=== PATIENT | female | born 1950 | race Caucasian/White ===

== ENCOUNTER 2017-06-26 01:34 | Inpatient (IN) | payer OTHER ==
[~2017-06-26] VITALS: Ht 154.9 cm; Wt 71.8 kg
[2017-06-26] VITALS (16 sets, daily range): BP systolic 122–167; BP diastolic 61–84
[~2017-06-26 01:34] MED LIST: CLINDAMYCIN HC300 MG PO; NOHOMEMEDS
[2017-06-26 02:24] LABS: HEMATOCRIT 21.4 % (36.0-46.0); MCH 19.9 PG (29.0-34.0); MCHC 25.2 G/DL (30.0-36.0); MCV 78.7 FL (83-99); MEAN PLAT.VOLUME 10.2 uM^3 (9.5-12.4); PLATELET COUNT 267 K/uL (156-360); RBC DIS.WIDTH-SD 56.8 % (39-53); RED BLOOD COUNT 2.72 M/uL (3.80-5.20); WHITE BLOOD COUNT 2.6 K/uL (4.1-10.2)
[2017-06-26 02:25] LABS: CHLORIDE 103 mEq/L (99-109); POTASSIUM 3.4 mEq/L (3.7-5.4); SODIUM 139 mEq/L (136-147)
[2017-06-26 02:27] LABS: GLUCOSE 109 mg/dL (70-99)
[2017-06-26 02:29] LABS: ANION GAP 11 MEQ/L (2-14)
[2017-06-26 02:31] LABS: GFR ESTIMATE (CALCULATED) > 59 mL/min/
[2017-06-26 02:32] LABS: UREA NITROGEN (BUN) 16 mg/dL (9-23)
[2017-06-26 02:33] LABS: INTER. NORMALIZED RATIO 1.1; PROTHROMBIN TIME 12.1 SEC (10.2-12.9)
[2017-06-26 02:36] LABS: PTT 34.1 SEC (25-37)
[2017-06-26 02:40] LABS: TROP-I INTERPRETATION NEGATIVE; TROPONIN-I < 0.01 ng/mL (0.0-0.30)
[2017-06-26] MEDS ORDERED: CHERATUSSIN AC473 ML PO (13:11)
[2017-06-26] MEDS ORDERED: ANORO ELLIPTA1 EACH IH (13:11)
[2017-06-26] MEDS ORDERED: FIORICET 50-301 EAC1 PO (13:12)
[2017-06-26] MEDS ORDERED: NABUMETONE750 MG PO (13:12)
[2017-06-26] MEDS ORDERED: LASIX20 MG PO (13:13)
[2017-06-26] MEDS ORDERED: SYMBICORT60 INHALAT IH (13:13)
[2017-06-26] MEDS ORDERED: LOSARTAN POTAS100 MG PO (13:14)
[2017-06-26] MEDS ORDERED: TYLENOL EXTRA500 MG PO (13:14)
[2017-06-26] MEDS ORDERED: BUSPAR15 MG PO (13:14)
[2017-06-26] MEDS ORDERED: CYCLOBENZAPRINE10 MG PO (13:16)
[2017-06-26] MEDS ORDERED: ATARAX,VISTARIL25 MG PO (13:17)
[2017-06-26] MEDS ORDERED: CELEXA40 MG PO (13:17)
[2017-06-26] MEDS ORDERED: HYDROCHLOROTH12.5 M3 PO (13:18)
[2017-06-26] MEDS ORDERED: TOPIRAMATE ER25 MG PO (13:18)
[2017-06-26] MEDS ORDERED: ADVIL,NUPRIN,M200 MG PO (13:18)
[2017-06-26] MEDS ORDERED: BENADRYL25 MG PO (13:19)
[2017-06-26 16:31] LABS: ALKALINE PHOSPHATASE 93 IU/L (3-129); DIRECT BILIRUBIN 0.3 mg/dL (0.0-0.3); TOTAL BILIRUBIN 1.3 MG/DL (0.0-1.0)
[2017-06-26 16:32] LABS: TROP-I INTERPRETATION NEGATIVE; TROPONIN-I 0.01 ng/mL (0.0-0.30)
[2017-06-26 17:57] LABS: HEMATOCRIT 27.3 % (36.0-46.0); MCV 80.8 FL (83-99)
[2017-06-26 18:31] LABS: EOSINOPHIL (%) 2.1 % (0-5); EOSINOPHIL COUNT 0.1 K/uL (0-0.3); HEMATOCRIT 26.7 % (36.0-46.0); IMMATURE GRANULOCYTE (%) 0.4 % (0.0-0.7); INSTRUMENT ABS NEUTROPHIL CT 1.3 K/uL; LYMPHOCYTE COUNT 0.6 K/uL (1.0-2.8); MCH 22.8 PG (29.0-34.0); MCHC 28.1 G/DL (30.0-36.0); MCV 81.2 FL (83-99); MEAN PLAT.VOLUME 9.4 uM^3 (9.5-12.4); MONOCYTE (%) 20.2 % (3-12); MONOCYTE COUNT 0.5 K/uL (0-0.8); NEUTROPHIL (%) 52.9 % (45-76); NEUTROPHIL COUNT 1.3 K/uL (1.8-6.4); NRBC (%) 0.8 /100 WBC (0-0); PLATELET COUNT 220 K/uL (156-360); RBC DIS.WIDTH-CV 18.4 % (11.8-14.6); RBC DIS.WIDTH-SD 54.4 % (39-53); WHITE BLOOD COUNT 2.4 K/uL (4.1-10.2)
[2017-06-26 18:42] LABS: RED BLOOD COUNT 3.29 M/uL (3.80-5.20)
[2017-06-26 18:53] LABS: TROP-I INTERPRETATION NEGATIVE; TROPONIN-I 0.01 ng/mL (0.0-0.30)
[2017-06-27] VITALS (10 sets, daily range): BP systolic 125–180; BP diastolic 59–81
[2017-06-27 06:54] LABS: EOSINOPHIL (%) 2.7 % (0-5); EOSINOPHIL COUNT 0.1 K/uL (0-0.3); HEMATOCRIT 27.2 % (36.0-46.0); IMMATURE GRANULOCYTE (%) 0.8 % (0.0-0.7); INSTRUMENT ABS NEUTROPHIL CT 1.4 K/uL; LYMPHOCYTE COUNT 0.5 K/uL (1.0-2.8); MCH 23.7 PG (29.0-34.0); MCV 81.7 FL (83-99); MEAN PLAT.VOLUME 10.2 uM^3 (9.5-12.4); MONOCYTE (%) 19.5 % (3-12); MONOCYTE COUNT 0.5 K/uL (0-0.8); NEUTROPHIL (%) 55.6 % (45-76); NEUTROPHIL COUNT 1.4 K/uL (1.8-6.4); NRBC (%) 0.8 /100 WBC (0-0); PLATELET COUNT 224 K/uL (156-360); RBC DIS.WIDTH-CV 18.6 % (11.8-14.6); RBC DIS.WIDTH-SD 55.2 % (39-53); RED BLOOD COUNT 3.33 M/uL (3.80-5.20); WHITE BLOOD COUNT 2.6 K/uL (4.1-10.2)
[2017-06-27 08:46] LABS: ANION GAP 5 MEQ/L (2-14); CHLORIDE 103 MEQ/L (99-109); SAMPLE HEMOLYSIS CHECK 0; SAMPLE ICTERIC CHECK 0; SAMPLE LIPEMIA CHECK 0; SODIUM 138 MEQ/L (136-147)
[2017-06-27 08:51] LABS: GFR ESTIMATE (CALCULATED) > 59 mL/min/; GLUCOSE 131 mg/dL (70-99); UREA NITROGEN (BUN) 6 mg/dL (9-23)
[2017-06-27 11:30] LABS: ADD MIUA? YES; BILIRUBIN NEGATIVE; BLOOD NEGATIVE; COLOR YELLOW ((YELLOW)); GLUCOSE (STRIP) NEGATIVE; KETONES NEGATIVE; LEUKOCYTES TRACE; NITRITE NEGATIVE; PROTEIN (STRIP) NEGATIVE
[2017-06-27 12:16] LABS: BACTERIA 3+ /HPF; EPITHELIAL CELLS RARE /HPF; MUCUS TRACE /LPF; RED BLOOD CELLS 0-5 /HPF (0-5); WHITE BLOOD CELLS 20-30 /HPF (0-5); WHITE BLOOD CELLS CLUMP RARE /HPF (0-5)
[2017-06-27 20:06] LABS: HEMATOCRIT 30.5 % (36.0-46.0)
[2017-06-28 04:02] VITALS: BP 154/71
[2017-06-28 07:39] VITALS: BP 176/77
[2017-06-28 08:35] LABS: HEMATOCRIT 30.8 % (36.0-46.0); MCH 24.1 PG (29.0-34.0); MCHC 29.2 G/DL (30.0-36.0); MCV 82.6 FL (83-99); MEAN PLAT.VOLUME 9.5 uM^3 (9.5-12.4); PLATELET COUNT 215 K/uL (156-360); RBC DIS.WIDTH-CV 19.4 % (11.8-14.6); RBC DIS.WIDTH-SD 56.5 % (39-53); RED BLOOD COUNT 3.73 M/uL (3.80-5.20); WHITE BLOOD COUNT 2.5 K/uL (4.1-10.2)
[2017-06-28 09:11] LABS: ANION GAP 7 MEQ/L (2-14); CHLORIDE 101 MEQ/L (99-109); POTASSIUM 3.9 MEQ/L (3.7-5.4); SAMPLE HEMOLYSIS CHECK 0; SAMPLE ICTERIC CHECK 0; SAMPLE LIPEMIA CHECK 0; SODIUM 137 MEQ/L (136-147)
[2017-06-28 09:17] LABS: GFR ESTIMATE (CALCULATED) > 59 mL/min/; GLUCOSE 130 mg/dL (70-99); UREA NITROGEN (BUN) 5 mg/dL (9-23)
[2017-06-28 11:08] VITALS: BP 184/76
[2017-06-28 12:12] VITALS: BP 161/75
[2017-06-28 16:55] VITALS: BP 151/67
[2017-06-28 19:13] VITALS: BP 145/68
[2017-06-29] VITALS (7 sets, daily range): BP systolic 125–169; BP diastolic 58–95
[2017-06-29 05:36] LABS: HEMATOCRIT 31.8 % (36.0-46.0); MCH 24.2 PG (29.0-34.0); MCHC 28.9 G/DL (30.0-36.0); MCV 83.7 FL (83-99); MEAN PLAT.VOLUME 9.7 uM^3 (9.5-12.4); PLATELET COUNT 219 K/uL (156-360); RBC DIS.WIDTH-CV 20.2 % (11.8-14.6); RBC DIS.WIDTH-SD 58.2 % (39-53); WHITE BLOOD COUNT 2.8 K/uL (4.1-10.2)
[2017-06-29 06:34] LABS: ANION GAP 10 MEQ/L (2-14); CHLORIDE 101 MEQ/L (99-109); GFR ESTIMATE (CALCULATED) > 59 mL/min/; GLUCOSE 101 mg/dL (70-99); POTASSIUM 3.8 MEQ/L (3.7-5.4); SAMPLE HEMOLYSIS CHECK 0; SAMPLE ICTERIC CHECK 0; SAMPLE LIPEMIA CHECK 0; SODIUM 139 MEQ/L (136-147); UREA NITROGEN (BUN) 6 mg/dL (9-23)
[2017-06-30 04:30] VITALS: BP 188/79
[2017-06-30 05:38] LABS: HEMATOCRIT 35.3 % (36.0-46.0); MCH 23.9 PG (29.0-34.0); MCV 85.1 FL (83-99); MEAN PLAT.VOLUME 10.3 uM^3 (9.5-12.4); PLATELET COUNT 260 K/uL (156-360); RBC DIS.WIDTH-CV 21.2 % (11.8-14.6); RED BLOOD COUNT 4.15 M/uL (3.80-5.20); WHITE BLOOD COUNT 3.2 K/uL (4.1-10.2)
[2017-06-30 06:00] LABS: ANION GAP 13 MEQ/L (2-14); CHLORIDE 100 MEQ/L (99-109); GFR ESTIMATE (CALCULATED) > 59 mL/min/; GLUCOSE 107 mg/dL (70-99); POTASSIUM 3.8 MEQ/L (3.7-5.4); SAMPLE HEMOLYSIS CHECK 0; SAMPLE ICTERIC CHECK 0; SAMPLE LIPEMIA CHECK 0; SODIUM 138 MEQ/L (136-147); UREA NITROGEN (BUN) 7 mg/dL (9-23)
[2017-06-30 08:02] VITALS: BP 139/79
[2017-06-30 11:14] VITALS: BP 139/71
[2017-06-30 11:47] LABS: IRON 72 MCG/DL (35-150)
[2017-06-30 14:13] VITALS: BP 133/83
[2017-06-30 18:00] VITALS: BP 155/72
[2017-06-30 19:10] VITALS: BP 130/61
[2017-07-01 04:52] VITALS: BP 146/68
[2017-07-01 05:57] LABS: HEMATOCRIT 31.2 % (36.0-46.0); MCH 24.7 PG (29.0-34.0); MCHC 28.8 G/DL (30.0-36.0); MCV 85.5 FL (83-99); MEAN PLAT.VOLUME 9.5 uM^3 (9.5-12.4); PLATELET COUNT 189 K/uL (156-360); RBC DIS.WIDTH-CV 21.4 % (11.8-14.6); RBC DIS.WIDTH-SD 60.5 % (39-53); RED BLOOD COUNT 3.65 M/uL (3.80-5.20); WHITE BLOOD COUNT 2.4 K/uL (4.1-10.2)
[2017-07-01 07:01] LABS: ANION GAP 7 MEQ/L (2-14); CHLORIDE 102 MEQ/L (99-109); GFR ESTIMATE (CALCULATED) > 59 mL/min/; GLUCOSE 98 mg/dL (70-99); POTASSIUM 3.7 MEQ/L (3.7-5.4); SAMPLE HEMOLYSIS CHECK 0; SAMPLE ICTERIC CHECK 0; SAMPLE LIPEMIA CHECK 0; SODIUM 136 MEQ/L (136-147); UREA NITROGEN (BUN) 5 mg/dL (9-23)
[2017-07-01 08:25] VITALS: BP 133/63
[2017-07-01 11:09] VITALS: BP 131/70
[2017-07-01 16:40] VITALS: BP 127/81
[2017-07-01 19:10] VITALS: BP 135/61
[2017-07-02 05:00] VITALS: BP 158/82
[2017-07-02 05:15] LABS: HEMATOCRIT 30.6 % (36.0-46.0); MCHC 28.8 G/DL (30.0-36.0); MCV 86.9 FL (83-99); MEAN PLAT.VOLUME 9.7 uM^3 (9.5-12.4); PLATELET COUNT 182 K/uL (156-360); RBC DIS.WIDTH-CV 21.9 % (11.8-14.6); RBC DIS.WIDTH-SD 64.5 % (39-53); RED BLOOD COUNT 3.52 M/uL (3.80-5.20); WHITE BLOOD COUNT 2.4 K/uL (4.1-10.2)
[2017-07-02 05:20] LABS: INTER. NORMALIZED RATIO 1.2; PROTHROMBIN TIME 14.1 SEC (10.2-12.9)
[2017-07-02 05:23] LABS: PTT 36.4 SEC (25-37)
[2017-07-02 05:48] LABS: ALKALINE PHOSPHATASE 68 IU/L (3-129); ANION GAP 10 MEQ/L (2-14); CHLORIDE 107 MEQ/L (99-109); GFR ESTIMATE (CALCULATED) > 59 mL/min/; GLUCOSE 112 mg/dL (70-99); POTASSIUM 3.6 MEQ/L (3.7-5.4); SAMPLE HEMOLYSIS CHECK 0; SAMPLE ICTERIC CHECK 0; SAMPLE LIPEMIA CHECK 0; SODIUM 142 MEQ/L (136-147); UREA NITROGEN (BUN) 3 mg/dL (9-23)
[2017-07-02 05:49] LABS: TOTAL BILIRUBIN 0.4 MG/DL (0.0-1.0)
[2017-07-02 07:05] VITALS: BP 139/63
[2017-07-02 11:00] VITALS: BP 144/76
[2017-07-02 17:40] LABS: HEMATOCRIT 40.6 % (36.0-46.0); MCV 86.6 FL (83-99)
[2017-07-02 19:33] VITALS: BP 157/82
[2017-07-03 00:10] VITALS: BP 141/69
[2017-07-03 03:42] VITALS: BP 164/83
[2017-07-03 05:52] LABS: HEMATOCRIT 37.4 % (36.0-46.0); MCH 25.9 PG (29.0-34.0); MCHC 30.2 G/DL (30.0-36.0); MCV 85.6 FL (83-99); MEAN PLAT.VOLUME 10.7 uM^3 (9.5-12.4); PLATELET COUNT 197 K/uL (156-360); RBC DIS.WIDTH-CV 20.2 % (11.8-14.6); RBC DIS.WIDTH-SD 58.1 % (39-53); WHITE BLOOD COUNT 7.1 K/uL (4.1-10.2)
[2017-07-03 05:57] LABS: RED BLOOD COUNT 4.37 M/uL (3.80-5.20)
[2017-07-03 06:20] LABS: ANION GAP 7 MEQ/L (2-14); CHLORIDE 105 MEQ/L (99-109); GFR ESTIMATE (CALCULATED) > 59 mL/min/; GLUCOSE 143 mg/dL (70-99); POTASSIUM 4.3 MEQ/L (3.7-5.4); SAMPLE HEMOLYSIS CHECK 0; SAMPLE ICTERIC CHECK 0; SAMPLE LIPEMIA CHECK 0; SODIUM 138 MEQ/L (136-147); UREA NITROGEN (BUN) 5 mg/dL (9-23)
[2017-07-03 07:20] VITALS: BP 144/73
[2017-07-03 10:43] VITALS: BP 123/73
[2017-07-03 15:37] VITALS: BP 117/57
[2017-07-03 19:35] VITALS: BP 144/69
[2017-07-04] VITALS (7 sets, daily range): BP systolic 126–165; BP diastolic 69–90
[2017-07-04 06:12] LABS: HEMATOCRIT 35.2 % (36.0-46.0); MCH 25.3 PG (29.0-34.0); MCHC 28.7 G/DL (30.0-36.0); MEAN PLAT.VOLUME 10.8 uM^3 (9.5-12.4); RBC DIS.WIDTH-CV 20.8 % (11.8-14.6); RBC DIS.WIDTH-SD 64.5 % (39-53); WHITE BLOOD COUNT 8.5 K/uL (4.1-10.2)
[2017-07-04 06:36] LABS: PLATELET COUNT 269 K/uL (156-360)
[2017-07-04 06:38] LABS: ANION GAP 8 MEQ/L (2-14); CHLORIDE 108 MEQ/L (99-109); GFR ESTIMATE (CALCULATED) > 59 mL/min/; GLUCOSE 109 mg/dL (70-99); POTASSIUM 4.2 MEQ/L (3.7-5.4); SAMPLE HEMOLYSIS CHECK 0; SAMPLE ICTERIC CHECK 0; SAMPLE LIPEMIA CHECK 0; SODIUM 141 MEQ/L (136-147); UREA NITROGEN (BUN) 3 mg/dL (9-23)
[2017-07-05 04:31] VITALS: BP 146/88
[2017-07-05 06:07] LABS: HEMATOCRIT 34.8 % (36.0-46.0); MCH 25.6 PG (29.0-34.0); MCV 88.1 FL (83-99); MEAN PLAT.VOLUME 9.5 uM^3 (9.5-12.4); PLATELET COUNT 279 K/uL (156-360); RBC DIS.WIDTH-CV 20.5 % (11.8-14.6); RBC DIS.WIDTH-SD 65.4 % (39-53); RED BLOOD COUNT 3.95 M/uL (3.80-5.20); WHITE BLOOD COUNT 8.2 K/uL (4.1-10.2)
[2017-07-05 06:30] LABS: ANION GAP 6 MEQ/L (2-14); CHLORIDE 104 MEQ/L (99-109); GFR ESTIMATE (CALCULATED) > 59 mL/min/; GLUCOSE 126 mg/dL (70-99); POTASSIUM 3.9 MEQ/L (3.7-5.4); SAMPLE HEMOLYSIS CHECK 0; SAMPLE ICTERIC CHECK 0; SAMPLE LIPEMIA CHECK 0; SODIUM 138 MEQ/L (136-147); UREA NITROGEN (BUN) 3 mg/dL (9-23)
[2017-07-05 08:19] VITALS: BP 138/91
[2017-07-05 11:38] VITALS: BP 137/79
[2017-07-05 18:00] VITALS: BP 139/66
[2017-07-05 19:45] VITALS: BP 152/82
[2017-07-05 23:30] VITALS: BP 157/76
[2017-07-06 04:15] VITALS: BP 134/65
[2017-07-06 07:13] VITALS: BP 146/79
[2017-07-06 08:47] LABS: HEMATOCRIT 35.7 % (36.0-46.0); MCH 26.4 PG (29.0-34.0); MCHC 29.7 G/DL (30.0-36.0); MEAN PLAT.VOLUME 9.5 uM^3 (9.5-12.4); NRBC (%) 0.3 /100 WBC (0-0); PLATELET COUNT 337 K/uL (156-360); RBC DIS.WIDTH-CV 20.5 % (11.8-14.6); RBC DIS.WIDTH-SD 65.6 % (39-53); RED BLOOD COUNT 4.01 M/uL (3.80-5.20); WHITE BLOOD COUNT 6.3 K/uL (4.1-10.2)
[2017-07-06 09:49] LABS: ANION GAP 8 MEQ/L (2-14); CHLORIDE 104 MEQ/L (99-109); GFR ESTIMATE (CALCULATED) > 59 mL/min/; GLUCOSE 98 mg/dL (70-99); POTASSIUM 4.4 MEQ/L (3.7-5.4); SAMPLE HEMOLYSIS CHECK 1; SAMPLE ICTERIC CHECK 0; SAMPLE LIPEMIA CHECK 0; SODIUM 139 MEQ/L (136-147); UREA NITROGEN (BUN) 5 mg/dL (9-23)
[2017-07-06 11:14] VITALS: BP 134/72
[2017-07-06] MEDS ORDERED: PANTOPRAZOLE SO40 MG PO (11:46)
[2017-07-06] MEDS ORDERED: LOPRESSOR25 MG PO (11:46)
[2017-07-06] MEDS ORDERED: REGLAN10 MG PO (11:47)
== END 2017-07-06 16:09 | DRG 327 ==
LOC: EME 01:34 → 4EAST 04:36 → EDOF 04:36 → ENRESERV 04:47 → 4EAST 05:46
PROVIDERS: Hospitalist; Internal Medicine; Internal Medicine Gastroenterology; Physician Assistant Surgical; Surgery
DX: K92.2 Gastrointestinal hemorrhage, unspecified (principal); D62 Acute posthemorrhagic anemia; D73.5 Infarction of spleen; K43.0 Incisional hernia with obstruction, without gangrene; R34 Anuria and oliguria; L03.115 Cellulitis of right lower limb; L03.116 Cellulitis of left lower limb; I27.20 Pulmonary hypertension, unspecified; D12.3 Benign neoplasm of transverse colon; D12.4 Benign neoplasm of descending colon; N39.0 Urinary tract infection, site not specified; E87.6 Hypokalemia; K25.9 Gastric ulcer, unspecified as acute or chronic, without hemorrhage or perforation; K26.9 Duodenal ulcer, unspecified as acute or chronic, without hemorrhage or perforation; K44.9 Diaphragmatic hernia without obstruction or gangrene; K57.31 Diverticulosis of large intestine without perforation or abscess with bleeding; K64.8 Other hemorrhoids; I11.9 Hypertensive heart disease without heart failure; D72.819 Decreased white blood cell count, unspecified; I35.8 Other nonrheumatic aortic valve disorders; R94.31 Abnormal electrocardiogram [ECG] [EKG]; K21.9 Gastro-esophageal reflux disease without esophagitis; R13.10 Dysphagia, unspecified; I87.8 Other specified disorders of veins; J44.9 Chronic obstructive pulmonary disease, unspecified; Z77.22 Contact with and (suspected) exposure to environmental tobacco smoke (acute) (chronic); Q89.9 Congenital malformation, unspecified; Z87.11 Personal history of peptic ulcer disease; Z91.14 Patient's other noncompliance with medication regimen; Z90.710 Acquired absence of both cervix and uterus
CPT/HCPCS: 36415; 71020; 73130; 74176; 74177; 78452; 80048; 80053; 80069; 80076; 81003; 82607; 82728; 82746; 83540; 83735; 84466; 84484; 85014; 85018; 85025; 85027; 85610; 85651; 85730; 86038; 86430; 86850; 86900; 86901; 86920; 87086; 88302; 88305; 88342 TC; 90732; 93005; 93017; 93306; 93970; 94799; 97530 GP; 99281; 99285; A9500; B4087; C9113; G0009; J0131; J0330; J0690; J0696; J1100; J1940; J2060; J2270; J2354; J2405; J2710; J2765; J2785; J3010; J7030; J7050; P9016; Q0138; S0164

== ENCOUNTER 2018-04-01 09:23 | Inpatient (IN) | payer OTHER ==
[2018-04-01] VITALS (24 sets, daily range): BP systolic 99–142; BP diastolic 55–91
[~2018-04-01] VITALS: Ht 152.4 cm; Wt 68.1 kg
[~2018-04-01 09:23] MED LIST changes: +ADVIL,NUPRIN,M200 MG PO; +ANORO ELLIPTA1 EACH IH; +ATARAX,VISTARIL25 MG PO; +BENADRYL25 MG PO; +BUSPAR15 MG PO; +CELEXA40 MG PO; +CHERATUSSIN AC473 ML PO; +CYCLOBENZAPRINE10 MG PO; +FIORICET 50-301 EAC1 PO; +HYDROCHLOROTH12.5 M3 PO; +LASIX20 MG PO; +LOPRESSOR25 MG PO; +LOSARTAN POTAS100 MG PO; +NABUMETONE750 MG PO; +PANTOPRAZOLE SO40 MG PO; +REGLAN10 MG PO; +SYMBICORT60 INHALAT IH; +TOPIRAMATE ER25 MG PO; +TYLENOL EXTRA500 MG PO
[2018-04-01 10:16] LABS: CHLORIDE 111 mEq/L (99-109); POTASSIUM 5.1 mEq/L (3.7-5.4); SODIUM 139 mEq/L (136-147)
[2018-04-01 10:18] LABS: GLUCOSE 110 mg/dL (70-99)
[2018-04-01 10:22] LABS: CREATININE 1.2 mg/dL (0.6-1.3); GFR ESTIMATE (CALCULATED) 48 mL/min/
[2018-04-01 10:23] LABS: UREA NITROGEN (BUN) 52 mg/dL (9-23)
[2018-04-01 10:34] LABS: INTER. NORMALIZED RATIO 1.2
[2018-04-01 10:36] LABS: PTT 26.3 SEC (25-37)
[2018-04-01 11:14] LABS: HEMATOCRIT 9.5 % (36.0-46.0); MCH 28.6 PG (29.0-34.0); MCHC 31.6 G/DL (30.0-36.0); MCV 90.5 FL (83-99); NRBC (%) 21.9 /100 WBC (0-0); PLATELET COUNT 424 K/uL (156-360); RBC DIS.WIDTH-CV 16.8 % (11.8-14.6); RBC DIS.WIDTH-SD 54.6 % (39-53); RED BLOOD COUNT 1.05 M/uL (3.80-5.20); WHITE BLOOD COUNT 11.2 K/uL (4.1-10.2)
[2018-04-01] MEDS ORDERED: MOBIC15 MG PO (13:02)
[2018-04-01 20:32] LABS: BASOPHIL (%) 0.6 % (0-1); EOSINOPHIL (%) 0.6 % (0-5); HEMATOCRIT 22.6 % (36.0-46.0); HEMOGLOBIN 7.3 G/DL (11.9-15.5); IMMATURE GRANULOCYTE (%) 1.1 % (0.0-0.7); LYMPHOCYTE (%) 28.2 % (15-42); LYMPHOCYTE COUNT 1.8 K/uL (1.0-2.8); MCH 27.3 PG (29.0-34.0); MCHC 32.3 G/DL (30.0-36.0); MCV 84.6 FL (83-99); MONOCYTE (%) 14.1 % (3-12); MONOCYTE COUNT 0.9 K/uL (0-0.8); NEUTROPHIL (%) 55.4 % (45-76); NEUTROPHIL COUNT 3.5 K/uL (1.8-6.4); NRBC (%) 46.3 /100 WBC (0-0); PLATELET COUNT 325 K/uL (156-360); RBC DIS.WIDTH-CV 17.2 % (11.8-14.6); RBC DIS.WIDTH-SD 52.5 % (39-53); RED BLOOD COUNT 2.67 M/uL (3.80-5.20); WHITE BLOOD COUNT 6.4 K/uL (4.1-10.2)
[2018-04-01 20:40] LABS: ALBUMIN 2.5 g/dL (3.2-4.8); CHLORIDE 116 mEq/L (99-109); POTASSIUM 4.3 mEq/L (3.7-5.4); SODIUM 142 mEq/L (136-147)
[2018-04-01 20:42] LABS: GLUCOSE 94 mg/dL (70-99); TOTAL PROTEIN 4.9 g/dL (6.4-8.3)
[2018-04-01 20:44] LABS: TOTAL BILIRUBIN 0.4 mg/dL (0.0-1.0)
[2018-04-01 20:46] LABS: ALKALINE PHOSPHATASE 86 IU/L (3-129); CREATININE 0.8 mg/dL (0.6-1.3); GFR ESTIMATE (CALCULATED) > 59 mL/min/
[2018-04-01 20:47] LABS: TROP-I INTERPRETATION NEGATIVE; TROPONIN-I 0.26 ng/mL (0.0-0.30); UREA NITROGEN (BUN) 33 mg/dL (9-23)
[2018-04-01 20:48] LABS: AST (GOT) 21 IU/L (2-34)
[2018-04-01 20:49] LABS: ALT (GPT) 11 IU/L (3-49)
[2018-04-01 20:50] LABS: AMYLASE 34 IU/L (1-118)
[2018-04-01 20:56] LABS: PHOSPHORUS 2.4 mg/dL (2.5-4.9)
[2018-04-02] VITALS (20 sets, daily range): BP systolic 104–146; BP diastolic 55–87
[2018-04-02 01:12] LABS: BASOPHIL (%) 1.1 % (0-1); BASOPHIL COUNT 0.1 K/uL (0-0.1); EOSINOPHIL (%) 1.8 % (0-5); EOSINOPHIL COUNT 0.1 K/uL (0-0.3); HEMATOCRIT 24.7 % (36.0-46.0); IMMATURE GRANULOCYTE (%) 1.4 % (0.0-0.7); LYMPHOCYTE (%) 30.8 % (15-42); MCH 27.4 PG (29.0-34.0); MCHC 32.4 G/DL (30.0-36.0); MCV 84.6 FL (83-99); MONOCYTE (%) 17.1 % (3-12); MONOCYTE COUNT 1.1 K/uL (0-0.8); NEUTROPHIL (%) 47.8 % (45-76); NEUTROPHIL COUNT 3.2 K/uL (1.8-6.4); NRBC (%) 48.6 /100 WBC (0-0); PLATELET COUNT 311 K/uL (156-360); RBC DIS.WIDTH-CV 17.3 % (11.8-14.6); RBC DIS.WIDTH-SD 53.1 % (39-53); RED BLOOD COUNT 2.92 M/uL (3.80-5.20); WHITE BLOOD COUNT 6.6 K/uL (4.1-10.2)
[2018-04-02 05:48] LABS: BASOPHIL (%) 1.2 % (0-1); BASOPHIL COUNT 0.1 K/uL (0-0.1); EOSINOPHIL (%) 3.4 % (0-5); EOSINOPHIL COUNT 0.2 K/uL (0-0.3); HEMATOCRIT 26.8 % (36.0-46.0); HEMOGLOBIN 8.6 G/DL (11.9-15.5); IMMATURE GRANULOCYTE (%) 1.2 % (0.0-0.7); LYMPHOCYTE (%) 17.3 % (15-42); LYMPHOCYTE COUNT 1.1 K/uL (1.0-2.8); MCH 27.7 PG (29.0-34.0); MCHC 32.1 G/DL (30.0-36.0); MCV 86.2 FL (83-99); MONOCYTE (%) 18.5 % (3-12); MONOCYTE COUNT 1.2 K/uL (0-0.8); NEUTROPHIL (%) 58.4 % (45-76); NEUTROPHIL COUNT 3.8 K/uL (1.8-6.4); NRBC (%) 59.5 /100 WBC (0-0); PLATELET COUNT 297 K/uL (156-360); RBC DIS.WIDTH-CV 17.7 % (11.8-14.6); RBC DIS.WIDTH-SD 55.4 % (39-53); RED BLOOD COUNT 3.11 M/uL (3.80-5.20); WHITE BLOOD COUNT 6.5 K/uL (4.1-10.2)
[2018-04-02 11:56] LABS: BASOPHIL (%) 1.1 % (0-1); BASOPHIL COUNT 0.1 K/uL (0-0.1); EOSINOPHIL (%) 3.1 % (0-5); EOSINOPHIL COUNT 0.2 K/uL (0-0.3); HEMATOCRIT 27.5 % (36.0-46.0); HEMOGLOBIN 8.7 G/DL (11.9-15.5); IMMATURE GRANULOCYTE (%) 1.4 % (0.0-0.7); LYMPHOCYTE (%) 5.2 % (15-42); LYMPHOCYTE COUNT 0.3 K/uL (1.0-2.8); MCH 27.2 PG (29.0-34.0); MCHC 31.6 G/DL (30.0-36.0); MCV 85.9 FL (83-99); MONOCYTE (%) 15.1 % (3-12); NEUTROPHIL (%) 74.1 % (45-76); NEUTROPHIL COUNT 4.8 K/uL (1.8-6.4); NRBC (%) 66.8 /100 WBC (0-0); PLATELET COUNT 295 K/uL (156-360); RBC DIS.WIDTH-SD 55.1 % (39-53); WHITE BLOOD COUNT 6.5 K/uL (4.1-10.2)
[2018-04-02 18:02] LABS: BASOPHIL (%) 1.2 % (0-1); BASOPHIL COUNT 0.1 K/uL (0-0.1); EOSINOPHIL COUNT 0.2 K/uL (0-0.3); HEMATOCRIT 29.3 % (36.0-46.0); HEMOGLOBIN 9.1 G/DL (11.9-15.5); IMMATURE GRANULOCYTE (%) 0.9 % (0.0-0.7); LYMPHOCYTE (%) 16.3 % (15-42); LYMPHOCYTE COUNT 1.1 K/uL (1.0-2.8); MCH 27.1 PG (29.0-34.0); MCHC 31.1 G/DL (30.0-36.0); MCV 87.2 FL (83-99); MONOCYTE (%) 14.6 % (3-12); NEUTROPHIL COUNT 4.2 K/uL (1.8-6.4); NRBC (%) 75.1 /100 WBC (0-0); PLATELET COUNT 301 K/uL (156-360); RBC DIS.WIDTH-CV 18.3 % (11.8-14.6); RBC DIS.WIDTH-SD 57.6 % (39-53); RED BLOOD COUNT 3.36 M/uL (3.80-5.20); WHITE BLOOD COUNT 6.6 K/uL (4.1-10.2)
[2018-04-03] VITALS (14 sets, daily range): BP systolic 113–165; BP diastolic 57–79
[2018-04-03 05:49] LABS: HEMATOCRIT 26.1 % (36.0-46.0); HEMOGLOBIN 8.2 G/DL (11.9-15.5); MCH 27.1 PG (29.0-34.0); MCHC 31.4 G/DL (30.0-36.0); MCV 86.1 FL (83-99); NRBC (%) 79.2 /100 WBC (0-0); PLATELET COUNT 277 K/uL (156-360); RBC DIS.WIDTH-CV 18.1 % (11.8-14.6); RBC DIS.WIDTH-SD 56.1 % (39-53); RED BLOOD COUNT 3.03 M/uL (3.80-5.20); WHITE BLOOD COUNT 5.5 K/uL (4.1-10.2)
[2018-04-03 06:40] LABS: ANISOCYTOSIS 1+; BASOPHIL (%) 1.4 % (0-1); BASOPHIL COUNT 0.1 K/uL (0-0.1); EOSINOPHIL (%) 8.8 % (0-5); EOSINOPHIL COUNT 0.5 K/uL (0-0.3); IMMATURE GRANULOCYTE (%) 2.2 % (0.0-0.7); LYMPHOCYTE (%) 2.9 % (15-42); LYMPHOCYTE COUNT 0.2 K/uL (1.0-2.8); MACROCYTES 1+; MONOCYTE (%) 24.5 % (3-12); MONOCYTE COUNT 1.4 K/uL (0-0.8); NEUTROPHIL (%) 60.2 % (45-76); NEUTROPHIL COUNT 3.3 K/uL (1.8-6.4); PLAT.SUFFICIENCY ADEQUATE; POIKILOCYTOSIS 1+; POLYCHROMASIA 1+
[2018-04-03 08:41] LABS: CHLORIDE 112 mEq/L (99-109)
[2018-04-03 08:42] LABS: ALBUMIN 2.8 g/dL (3.2-4.8); MAGNESIUM 1.9 mg/dL (1.3-2.7); POTASSIUM 4.4 mEq/L (3.7-5.4); SODIUM 142 mEq/L (136-147)
[2018-04-03 08:44] LABS: GLUCOSE 97 mg/dL (70-99); TOTAL PROTEIN 5.6 g/dL (6.4-8.3)
[2018-04-03 08:46] LABS: TOTAL BILIRUBIN 0.4 mg/dL (0.0-1.0)
[2018-04-03 08:47] LABS: PHOSPHORUS 2.6 mg/dL (2.5-4.9)
[2018-04-03 08:48] LABS: ALKALINE PHOSPHATASE 103 IU/L (3-129); CREATININE 0.7 mg/dL (0.6-1.3); GFR ESTIMATE (CALCULATED) > 59 mL/min/
[2018-04-03 08:49] LABS: AST (GOT) 29 IU/L (2-34)
[2018-04-03 08:50] LABS: UREA NITROGEN (BUN) 7 mg/dL (9-23)
[2018-04-03 08:51] LABS: ALT (GPT) 13 IU/L (3-49)
[2018-04-04 04:55] VITALS: BP 160/84
[2018-04-04 07:07] LABS: HEMATOCRIT 28.4 % (36.0-46.0); MCH 27.5 PG (29.0-34.0); MCHC 31.7 G/DL (30.0-36.0); MCV 86.9 FL (83-99); PLATELET COUNT 309 K/uL (156-360); RBC DIS.WIDTH-SD 55.5 % (39-53); RED BLOOD COUNT 3.27 M/uL (3.80-5.20); WHITE BLOOD COUNT 5.9 K/uL (4.1-10.2)
[2018-04-04 07:30] LABS: CHLORIDE 106 MEQ/L (99-109); CREATININE 0.5 MG/DL (0.6-1.3); GFR ESTIMATE (CALCULATED) > 59 mL/min/; GLUCOSE 107 mg/dL (70-99); POTASSIUM 3.8 MEQ/L (3.7-5.4); SODIUM 138 MEQ/L (136-147); UREA NITROGEN (BUN) 7 mg/dL (9-23)
[2018-04-04 07:35] VITALS: BP 140/73
[2018-04-04] MEDS ORDERED: MYCOSTATIN 100,60 ML PO (13:33)
[2018-04-04] MEDS ORDERED: SUCRALFATE1 GM PO (13:34)
[2018-04-04] MEDS ORDERED: PANTOPRAZOLE SO40 MG PO (13:34)
[2018-04-04 15:50] VITALS: BP 100/5; BP 100/55
[2018-04-04 20:09] VITALS: BP 117/65
[2018-04-04 23:39] VITALS: BP 144/70
[2018-04-05 06:09] LABS: HEMATOCRIT 29.3 % (36.0-46.0); HEMOGLOBIN 9.1 G/DL (11.9-15.5); MCH 27.1 PG (29.0-34.0); MCHC 31.1 G/DL (30.0-36.0); MCV 87.2 FL (83-99); NRBC (%) 15.7 /100 WBC (0-0); PLATELET COUNT 302 K/uL (156-360); RBC DIS.WIDTH-CV 17.8 % (11.8-14.6); RBC DIS.WIDTH-SD 56.5 % (39-53); RED BLOOD COUNT 3.36 M/uL (3.80-5.20); WHITE BLOOD COUNT 7.2 K/uL (4.1-10.2)
[2018-04-05 06:17] LABS: CHLORIDE 105 MEQ/L (99-109); CREATININE 0.6 MG/DL (0.6-1.3); GFR ESTIMATE (CALCULATED) > 59 mL/min/; GLUCOSE 107 mg/dL (70-99); POTASSIUM 3.9 MEQ/L (3.7-5.4); SODIUM 139 MEQ/L (136-147); UREA NITROGEN (BUN) 10 mg/dL (9-23)
[2018-04-05 06:54] LABS: ANISOCYTOSIS 1+; ATYPICAL LYMPHOCYTE 0.9 %; BAND NEUTROPHILS 1.7 % (0-8.0); BASOPHILS 0.9 %; EOSINOPHIL ABS CT 0.4; EOSINOPHILS 5.2 % (0-5.0); GIANT PLATELETS 2+; HYPOCHROMASIA 1+; LYMPHOCYTES 17.4 % (15.0-45.0); MACROCYTES 1+; MONOCYTES 6.1 % (0-9.0); NUCLEATED RBC'S 33.9; OVALOCYTES 1+; PLAT.SUFFICIENCY ADEQUATE; POIKILOCYTOSIS 1+; POLYCHROMASIA 2+; SEG.NEUTROPHILS 67.8 % (46.0-76.0); TARGET CELLS 1+
[2018-04-05 07:31] VITALS: BP 141/69
[2018-04-05 11:37] LABS: APPEARANCE CLOUDY ((CLEAR)); BILIRUBIN NEGATIVE; BLOOD MODERATE; COLOR YELLOW ((YELLOW)); GLUCOSE (STRIP) NEGATIVE; KETONES NEGATIVE; LEUKOCYTES LARGE; NITRITE NEGATIVE; PROTEIN (STRIP) 30; UROBILINOGEN 0.2 MG/DL (0.2-1.0)
[2018-04-05 11:47] LABS: BACTERIA 3+ /HPF; EPITHELIAL CELLS RARE /HPF; MUCUS TRACE /LPF; RED BLOOD CELLS 40-50 /HPF (0-5); UCUL ADDED? YES; WHITE BLOOD CELLS TNTC /HPF (0-5)
[2018-04-05 15:25] VITALS: BP 131/58
[2018-04-05 19:35] VITALS: BP 149/70
[2018-04-06 00:52] VITALS: BP 157/75
[2018-04-06 05:46] LABS: BASOPHIL (%) 1.2 % (0-1); BASOPHIL COUNT 0.1 K/uL (0-0.1); EOSINOPHIL (%) 17.1 % (0-5); EOSINOPHIL COUNT 0.9 K/uL (0-0.3); HEMOGLOBIN 9.5 G/DL (11.9-15.5); IMMATURE GRANULOCYTE (%) 0.8 % (0.0-0.7); LYMPHOCYTE (%) 20.6 % (15-42); MCH 27.1 PG (29.0-34.0); MCHC 30.6 G/DL (30.0-36.0); MCV 88.3 FL (83-99); MONOCYTE (%) 22.8 % (3-12); MONOCYTE COUNT 1.2 K/uL (0-0.8); NEUTROPHIL (%) 37.5 % (45-76); NEUTROPHIL COUNT 1.9 K/uL (1.8-6.4); NRBC (%) 11.9 /100 WBC (0-0); PLATELET COUNT 334 K/uL (156-360); RBC DIS.WIDTH-CV 17.4 % (11.8-14.6); RBC DIS.WIDTH-SD 55.7 % (39-53); RED BLOOD COUNT 3.51 M/uL (3.80-5.20)
[2018-04-06 06:06] LABS: CHLORIDE 104 MEQ/L (99-109); CREATININE 0.6 MG/DL (0.6-1.3); GFR ESTIMATE (CALCULATED) > 59 mL/min/; GLUCOSE 103 mg/dL (70-99); SODIUM 140 MEQ/L (136-147); UREA NITROGEN (BUN) 10 mg/dL (9-23)
[2018-04-06 07:41] VITALS: BP 126/22; BP 126/72
[2018-04-06 08:12] LABS: TROP-I INTERPRETATION NEGATIVE; TROPONIN-I 0.04 ng/mL (0.0-0.30)
[2018-04-06] MEDS ORDERED: OMNICEF300 MG PO (12:44)
== END 2018-04-06 15:27 | disposition home or self-care (01) | DRG 378 ==
LOC: EME 09:23 → EDOF 13:19 → 4WEST 13:19 → ENRESERV 13:19 → 4WEST 14:59 → CANRESERV 04-03 16:07 → ENRESERV 04-03 16:07 → 5SOUTH 04-03 19:08 → ENPENDDIS 04-06 12:51 → 5SOUTH 04-06 15:27
PROVIDERS: Emergency Medicine; Internal Medicine; Specialist
DX: K25.4 Chronic or unspecified gastric ulcer with hemorrhage (principal); E83.51 Hypocalcemia; D64.9 Anemia, unspecified; N39.0 Urinary tract infection, site not specified; K29.80 Duodenitis without bleeding; K29.70 Gastritis, unspecified, without bleeding; K57.10 Diverticulosis of small intestine without perforation or abscess without bleeding; R93.6 Abnormal findings on diagnostic imaging of limbs; I11.9 Hypertensive heart disease without heart failure; J44.9 Chronic obstructive pulmonary disease, unspecified; K21.9 Gastro-esophageal reflux disease without esophagitis; F32.9 Major depressive disorder, single episode, unspecified; F41.9 Anxiety disorder, unspecified; M19.90 Unspecified osteoarthritis, unspecified site; Z87.11 Personal history of peptic ulcer disease; Z90.81 Acquired absence of spleen
CPT/HCPCS: 71045; 71046; 71275; 80048; 80053; 81003; 82103 90; 82150; 82941 90; 83735; 84100; 84145 90; 84484; 85025; 85025 91; 85027; 85379; 85610; 85730; 86850; 86900; 86901; 86920; 87040; 87077; 87086; 87186; 87641; 88108; 93005; 93970; 99281; 99285; C9113; J0696; J1450; J2250; J2405; J2765; J7030; J7042; P9016

== ENCOUNTER 2018-04-26 18:41 | Emergency (ER) | payer OTHER ==
[~2018-04-26] VITALS: Ht 147.3 cm; Wt 63.5 kg
[~2018-04-26 18:41] MED LIST changes: -PERCOCET 5/31 TABLET PO
[2018-04-26 19:42] LABS: HEMATOCRIT 30.7 % (36.0-46.0); HEMOGLOBIN 9.3 G/DL (11.9-15.5); MCH 26.2 PG (29.0-34.0); MCHC 30.3 G/DL (30.0-36.0); PLATELET COUNT 529 K/uL (156-360); RBC DIS.WIDTH-CV 17.2 % (11.8-14.6); RBC DIS.WIDTH-SD 54.1 % (39-53); RED BLOOD COUNT 3.55 M/uL (3.80-5.20); WHITE BLOOD COUNT 4.4 K/uL (4.1-10.2)
[2018-04-26 19:51] LABS: ALBUMIN 3.7 g/dL (3.2-4.8); CHLORIDE 110 mEq/L (99-109); POTASSIUM 4.7 mEq/L (3.7-5.4); SODIUM 143 mEq/L (136-147)
[2018-04-26 19:53] LABS: GLUCOSE 116 mg/dL (70-99); TOTAL PROTEIN 7.3 g/dL (6.4-8.3)
[2018-04-26 19:55] LABS: TOTAL BILIRUBIN 0.2 mg/dL (0.0-1.0)
[2018-04-26 19:57] LABS: ALKALINE PHOSPHATASE 137 IU/L (3-129); CREATININE 0.7 mg/dL (0.6-1.3); GFR ESTIMATE (CALCULATED) > 59 mL/min/
[2018-04-26 19:58] LABS: AST (GOT) 26 IU/L (2-34); UREA NITROGEN (BUN) 14 mg/dL (9-23)
[2018-04-26 20:00] LABS: ALT (GPT) 17 IU/L (3-49)
[2018-04-26] MEDS ORDERED: PERCOCET 5/31 TABLET PO (20:16)
[2018-04-26 20:25] LABS: MCV 86.5 FL (83-99)
[2018-04-26 20:35] VITALS: BP 124/76
== END 2018-04-26 20:36 | disposition home or self-care (01) ==
LOC: EME 18:41 → EXP 18:41
DX: L76.32 Postprocedural hematoma of skin and subcutaneous tissue following other procedure (principal); Z93.1 Gastrostomy status; I10 Essential (primary) hypertension; J43.9 Emphysema, unspecified; F41.9 Anxiety disorder, unspecified; F32.9 Major depressive disorder, single episode, unspecified; Z90.81 Acquired absence of spleen; Z88.8 Allergy status to other drugs, medicaments and biological substances
CPT/HCPCS: 80053; 85027; 99281; 99283

== ENCOUNTER → 2018-04-26 | Outpatient (CLI) | payer OTHER ==
[~2018-04-26] MED LIST changes: +MOBIC15 MG PO; +MYCOSTATIN 100,60 ML PO; +OMNICEF300 MG PO; +PERCOCET 5/31 TABLET PO; +SUCRALFATE1 GM PO
== END | disposition home or self-care (01) ==
LOC: AMB 09:45
PROC: 0JB80ZZ Excision of Abdomen Subcutaneous Tissue and Fascia, Open Approach (ICD-10-PCS; principal; 2018-04-26)
DX: K94.22 Gastrostomy infection (principal); M62.89 Other specified disorders of muscle

== ENCOUNTER → 2018-04-27 | Outpatient (CLI) | payer OTHER ==
[~2018-04-27] MED LIST changes: +PERCOCET 5/31 TABLET PO
== END | disposition home or self-care (01) ==
LOC: AMB 12:00
PROC: 0JJTXZZ Inspection of Trunk Subcutaneous Tissue and Fascia, External Approach (ICD-10-PCS; principal; 2018-04-27)
DX: L76.32 Postprocedural hematoma of skin and subcutaneous tissue following other procedure (principal)
CPT/HCPCS: 99212